=== PATIENT | female | born 1940 | race Caucasian/White ===

== ENCOUNTER 2018-04-18 10:53 | Emergency (ER) | payer MEDICARE, BC ==
[2018-04-18 10:57] VITALS: BP 186/71
--- NOTE | 2018-04-18 11:31 | ER Document Report ---
ED General - General Chief Complaint: High Blood Pressure Stated Complaint: BLOOD PRESSURE ISSUES Time Seen by Provider: 04/18/18 11:17 Notes: Patient is a 77-year-old female that presents to the emergency department for chief complaint of elevated blood pressure and sinus congestion. Patient states that her blood pressure was elevated in the office on Friday, she was advised to continue taking her current enalapril 5 mg daily, she was previously on 20 mg this was changed several months ago. She took her blood pressure at home last night, is 191/88, she was concerned about this, so she came to the emergency department. She did take her blood pressure medication this morning prior to ED arrival. She also complains of having some sinus congestion for the past week, associated cough, and postnasal drip. She started using Flonase , Ira and Mucinex which has been helping with some of the symptoms. She notes she has COPD and asthma, but has not felt short of breath, denies chest pain, confusion, headaches, nausea or vomiting or frothy urine. Past Medical History: COPD, hypertension, asthma Past Surgical History: Appendectomy, orthopedic surgery Social History: Denies current tobacco, alcohol or illicit drug use, lives at home with family Family History: Reviewed and noncontributory for presenting illness Allergies: Reviewed, see documented allergy list. REVIEW OF SYSTEMS: Unless otherwise stated in this report the patient's positive and negative responses for review of systems for constitutional, eyes, ENT, cardiovascular, respiratory, gastrointestinal, neurological, genitourinary, musculoskeletal, and integumentary systems and related systems to the presenting problem are either as stated in the HPI or were not pertinent or were negative for the symptoms and/or complaints related to the presenting medical problem. PHYSICAL EXAMINATION: Vital signs reviewed, nursing noted reviewed. GENERAL: Elderly, well-appearing, well-nourished and in no acute distress. HEAD: Atraumatic, normocephalic. EYES: Eyes appear normal, extraocular movements intact, sclera anicteric, conjunctiva are normal. ENT: nares patent, oropharynx clear without exudates. Moist mucous membranes. NECK: Normal range of motion, supple without lymphadenopathy LUNGS: Breath sounds clear to auscultation bilaterally and equal. No wheezes rales or rhonchi. HEART: Regular rate and rhythm without murmurs ABDOMEN: Soft, nontender, normoactive bowel sounds. No rebound, guarding, or rigidity. No masses appreciated. EXTREMITIES: Nontender, good range of motion, no pitting or edema. NEUROLOGICAL: No focal neurological deficits. Moves all extremities spontaneously Motor and sensory grossly intact on exam. PSYCH: Normal mood, normal affect. SKIN: Warm, Dry, normal turgor, no rashes or lesions noted on exposed skin TRAVEL OUTSIDE OF THE [place] IN LAST 30 DAYS: No - Related Data Allergies/Adverse Reactions: Mites Allergy (Uncoded 04/18/18 10:53) Past Medical History - Social History Smoking Status: Never Smoker Chew tobacco use (# tins/day): No Drug Abuse: None Family History: Reviewed & Not Pertinent Patient has suicidal ideation: No Patient has homicidal ideation: No - Past Medical History Cardiac Medical History: Reports: Hx Hypercholesterolemia, Hx Hypertension Pulmonary Medical History: Reports: Hx Asthma, Hx COPD Renal/ Medical History: Denies: Hx Peritoneal Dialysis Malignancy Medical History: Reports: Hx Lymphoma - Followed by Lee Ann Brown M.D. in [place], [place] GI Medical History: Reports: Hx Gastroesophageal Reflux Disease Psychiatric Medical History: Reports: Hx Anxiety, Hx Depression Past Surgical History: Reports: Hx Appendectomy, Hx Orthopedic Surgery, Hx Tonsillectomy - Immunizations Immunizations up to date: Yes Hx Diphtheria, Pertussis, Tetanus Vaccination: Yes Physical Exam - Vital signs Vitals: Temp Pulse Resp BP Pulse Ox 98.2 F 80 16 186/71 H 94 04/18/18 10:56 04/18/18 10:56 04/18/18 10:56 04/18/18 10:56 04/18/18 10:56 Course - Re-evaluation Re-evalutation: I discussed with the patient, that elevated blood pressure, without symptoms, does not need acute treatment, but does need changes in medications to overall decrease the patient's blood pressure, I advised to increase her enalapril to 10 mg daily, and to follow-up with a primary this upcoming week, advised to continue her current regimen for her congestive and URI symptoms including Mucinex, Ira, and Flonase, her lungs are clear on auscultation, I do not feel the patient needs any acute steroid treatment, which showed only further elevate her blood pressure, patient was agreeable to this plan of care, was given reasons to return to the emergency department sooner, and was discharged to home. - Vital Signs Vital signs: Temp Pulse Resp BP Pulse Ox 98.2 F 80 16 186/71 H 94 04/18/18 10:56 04/18/18 10:56 04/18/18 10:56 04/18/18 10:56 04/18/18 10:56 Discharge - Discharge Clinical Impression: Hypertension Qualifiers: Hypertension type: unspecified Qualified Code(s): I10 - Essential (primary) hypertension URI (upper respiratory infection) Qualifiers: URI type: unspecified URI Qualified Code(s): J06.9 - Acute upper respiratory infection, unspecified Condition: Stable Disposition: HOME, SELF-CARE Instructions: High Blood Pressure, Requiring Treatment ([facility]), Upper Respiratory Illness ([facility]) Additional Instructions: Please start taking an additional 5 mg of enalapril daily, this will be a total of 10 mg of enalapril daily. Please follow-up with your primary care physician to have your blood pressure rechecked in the office next week. If you develop any concerning symptoms such as chest pain, difficulty breathing, difficulty breathing with lying down, or swelling in her legs, or dark urine or foamy urine , please return to the emergency department to be reevaluated. Continue taking the [id number] Ira once daily, and the Flonase each nostril once daily he can increase this to twice daily, also take Mucinex twice daily to help with thinning mucus secretions. Referrals: PIERRE MCKEON MD [Primary Care Provider] - Follow up as needed
== END 2018-04-18 11:34 | disposition home or self-care (01) ==
LOC: ER 10:53
DX: I10 Essential (primary) hypertension (principal); Z79.899 Other long term (current) drug therapy; J06.9 Acute upper respiratory infection, unspecified; R09.81 Nasal congestion; R05 Cough; R09.82 Postnasal drip; J44.9 Chronic obstructive pulmonary disease, unspecified; Z85.72 Personal history of non-Hodgkin lymphomas
CPT/HCPCS: 99283

== ENCOUNTER → 2019-12-30 | Outpatient (CLI) | payer MEDICARE, BC ==
[2019-12-30 12:10] LABS: HEMATOCRIT 36.6 % (36.0-47.0); HEMOGLOBIN 12.1 g/dL (12.0-15.5); MEAN CORPUSCULAR HEMOGLOBIN 28.6 pg (27.0-33.4); MEAN CORPUSCULAR HGB CONC 33.2 g/dL (32.0-36.0); MEAN CORPUSCULAR VOLUME 86 fl (80-97); PLATELET COUNT 372 10^3/uL (150-450); RED BLOOD COUNT 4.24 10^6/uL (3.72-5.28); RED CELL DISTRIBUTION WIDTH 17.4 % (11.5-14.0); WHITE BLOOD COUNT 8.3 10^3/uL (4.0-10.5)
[2019-12-30 12:30] LABS: ALBUMIN 3.8 g/dL (3.5-5.0); ALKALINE PHOSPHATASE 60 U/L (38-126); ANION GAP 7 (5-19); ASPARTATE AMINO TRANSFERASE 23 U/L (14-36); BILIRUBIN,TOTAL 0.3 mg/dL (0.2-1.3); BLOOD UREA NITROGEN 12 mg/dL (7-20); CALCIUM 9.2 mg/dL (8.4-10.2); CARBON DIOXIDE 26 mmol/L (22-30); CHLORIDE 104 mmol/L (98-107); GLUCOSE 95 mg/dL (75-110); POTASSIUM 4.3 mmol/L (3.6-5.0); TOTAL PROTEIN 7.1 g/dL (6.3-8.2)
== END ==
LOC: OD 11:37
PROVIDERS: ATTEND Internal Medicine Hematology & Oncology
DX: C83.30 Diffuse large B-cell lymphoma, unspecified site (principal)
CPT/HCPCS: 36415; 80053; 85027

== ENCOUNTER → 2020-01-20 | Outpatient (CLI) | payer MEDICARE, BC ==
[2020-01-20 08:59] LABS: HEMATOCRIT 36.9 % (36.0-47.0); HEMOGLOBIN 12.4 g/dL (12.0-15.5); MEAN CORPUSCULAR HEMOGLOBIN 29.7 pg (27.0-33.4); MEAN CORPUSCULAR HGB CONC 33.5 g/dL (32.0-36.0); MEAN CORPUSCULAR VOLUME 89 fl (80-97); PLATELET COUNT 258 10^3/uL (150-450); RED BLOOD COUNT 4.16 10^6/uL (3.72-5.28); RED CELL DISTRIBUTION WIDTH 20.6 % (11.5-14.0); WHITE BLOOD COUNT 10.9 10^3/uL (4.0-10.5)
[2020-01-20 09:15] LABS: ALBUMIN 3.9 g/dL (3.5-5.0); ALKALINE PHOSPHATASE 48 U/L (38-126); ANION GAP 5 (5-19); ASPARTATE AMINO TRANSFERASE 19 U/L (14-36); BILIRUBIN,TOTAL 0.3 mg/dL (0.2-1.3); BLOOD UREA NITROGEN 12 mg/dL (7-20); CALCIUM 9.4 mg/dL (8.4-10.2); CARBON DIOXIDE 29 mmol/L (22-30); CHLORIDE 103 mmol/L (98-107); GLUCOSE 104 mg/dL (75-110); POTASSIUM 4.1 mmol/L (3.6-5.0); TOTAL PROTEIN 6.9 g/dL (6.3-8.2)
== END ==
LOC: OD 08:29
PROVIDERS: ATTEND Internal Medicine Hematology & Oncology
DX: C83.30 Diffuse large B-cell lymphoma, unspecified site (principal)
CPT/HCPCS: 36415; 80053; 85027

== ENCOUNTER → 2020-02-10 | Outpatient (CLI) | payer MEDICARE, BC ==
[2020-02-10 11:17] LABS: ABSOLUTE LYMPHOCYTES (AUTO) 1.2 10^3/uL (0.5-4.7); ABSOLUTE MONOCYTES (AUTO) 0.9 10^3/uL (0.1-1.4); ABSOLUTE NEUT (AUTO) 5.2 10^3/uL (1.7-8.2); BASOPHILS % (AUTO) 0.6 % (0-2); EOSINOPHILS % (AUTO) 0.3 % (0-6); HEMATOCRIT 35.4 % (36.0-47.0); LYMPHOCYTES % (AUTO) 16.4 % (13-45); MEAN CORPUSCULAR HEMOGLOBIN 30.9 pg (27.0-33.4); MEAN CORPUSCULAR HGB CONC 33.8 g/dL (32.0-36.0); MEAN CORPUSCULAR VOLUME 91 fl (80-97); MONOCYTES % (AUTO) 12.7 % (3-13); PLATELET COUNT 282 10^3/uL (150-450); RED BLOOD COUNT 3.88 10^6/uL (3.72-5.28); RED CELL DISTRIBUTION WIDTH 22.2 % (11.5-14.0); TOTAL CELLS COUNTED % (AUTO) 100 %; WHITE BLOOD COUNT 7.4 10^3/uL (4.0-10.5)
[2020-02-10 11:41] LABS: ALBUMIN 3.9 g/dL (3.5-5.0); ALKALINE PHOSPHATASE 47 U/L (38-126); ANION GAP 9 (5-19); ASPARTATE AMINO TRANSFERASE 22 U/L (14-36); BILIRUBIN,TOTAL 0.3 mg/dL (0.2-1.3); BLOOD UREA NITROGEN 12 mg/dL (7-20); CARBON DIOXIDE 25 mmol/L (22-30); CHLORIDE 105 mmol/L (98-107); GLUCOSE 84 mg/dL (75-110); POTASSIUM 4.3 mmol/L (3.6-5.0); TOTAL PROTEIN 6.7 g/dL (6.3-8.2)
[2020-02-10 12:35] LABS: ANISOCYTOSIS 3+; OVALOCYTES 1+; POIKILOCYTOSIS 1+; SCHISTOCYTES 1+
[2020-02-10 12:36] LABS: TEAR DROP CELLS SLIGHT
[2020-02-10 12:40] LABS: PLATELET COMMENT ADEQUATE
== END ==
LOC: OD 10:19
PROVIDERS: ATTEND Internal Medicine Hematology & Oncology
DX: C83.30 Diffuse large B-cell lymphoma, unspecified site (principal)
CPT/HCPCS: 36415; 80053; 85025

== ENCOUNTER → 2020-03-02 | Outpatient (CLI) | payer MEDICARE, BC ==
[2020-03-02 10:46] LABS: ABSOLUTE BASOPHILS # (AUTO) 0.1 10^3/uL (0.0-0.2); ABSOLUTE LYMPHOCYTES (AUTO) 0.9 10^3/uL (0.5-4.7); ABSOLUTE MONOCYTES (AUTO) 0.9 10^3/uL (0.1-1.4); ABSOLUTE NEUT (AUTO) 9.5 10^3/uL (1.7-8.2); BASOPHILS % (AUTO) 0.7 % (0-2); EOSINOPHILS % (AUTO) 0.3 % (0-6); HEMATOCRIT 36.4 % (36.0-47.0); HEMOGLOBIN 12.6 g/dL (12.0-15.5); LYMPHOCYTES % (AUTO) 7.7 % (13-45); MEAN CORPUSCULAR HEMOGLOBIN 32.3 pg (27.0-33.4); MEAN CORPUSCULAR HGB CONC 34.5 g/dL (32.0-36.0); MEAN CORPUSCULAR VOLUME 94 fl (80-97); MONOCYTES % (AUTO) 8.2 % (3-13); PLATELET COUNT 304 10^3/uL (150-450); RED BLOOD COUNT 3.88 10^6/uL (3.72-5.28); RED CELL DISTRIBUTION WIDTH 17.7 % (11.5-14.0); SEGMENTED NEUTROPHILS % (AUTO) 83.1 % (42-78); TOTAL CELLS COUNTED % (AUTO) 100 %; WHITE BLOOD COUNT 11.4 10^3/uL (4.0-10.5)
[2020-03-02 11:10] LABS: ALBUMIN 3.9 g/dL (3.5-5.0); ALKALINE PHOSPHATASE 43 U/L (38-126); ANION GAP 9 (5-19); ASPARTATE AMINO TRANSFERASE 20 U/L (14-36); BILIRUBIN,DIRECT 0.2 mg/dL (0.0-0.4); BILIRUBIN,TOTAL 0.4 mg/dL (0.2-1.3); BLOOD UREA NITROGEN 13 mg/dL (7-20); CARBON DIOXIDE 27 mmol/L (22-30); CHLORIDE 101 mmol/L (98-107); GLUCOSE 105 mg/dL (75-110); POTASSIUM 3.1 mmol/L (3.6-5.0); TOTAL PROTEIN 6.5 g/dL (6.3-8.2)
== END ==
LOC: OD 09:50
PROVIDERS: ATTEND Internal Medicine Hematology & Oncology
DX: C83.30 Diffuse large B-cell lymphoma, unspecified site (principal)
CPT/HCPCS: 36415; 80053; 85025

== ENCOUNTER → 2020-03-23 | Outpatient (CLI) | payer MEDICARE, BC ==
[2020-03-23 11:12] LABS: HEMATOCRIT 34.9 % (36.0-47.0); HEMOGLOBIN 12.1 g/dL (12.0-15.5); MEAN CORPUSCULAR HEMOGLOBIN 33.4 pg (27.0-33.4); MEAN CORPUSCULAR HGB CONC 34.8 g/dL (32.0-36.0); MEAN CORPUSCULAR VOLUME 96 fl (80-97); PLATELET COUNT 268 10^3/uL (150-450); RED BLOOD COUNT 3.63 10^6/uL (3.72-5.28); RED CELL DISTRIBUTION WIDTH 13.8 % (11.5-14.0); WHITE BLOOD COUNT 7.6 10^3/uL (4.0-10.5)
[2020-03-23 11:29] LABS: ALBUMIN 3.8 g/dL (3.5-5.0); ALKALINE PHOSPHATASE 49 U/L (38-126); ANION GAP 7 (5-19); ASPARTATE AMINO TRANSFERASE 22 U/L (14-36); BILIRUBIN,DIRECT 0.2 mg/dL (0.0-0.4); BILIRUBIN,TOTAL 0.4 mg/dL (0.2-1.3); BLOOD UREA NITROGEN 6 mg/dL (7-20); CALCIUM 9.2 mg/dL (8.4-10.2); CARBON DIOXIDE 30 mmol/L (22-30); CHLORIDE 102 mmol/L (98-107); GLUCOSE 92 mg/dL (75-110); POTASSIUM 3.5 mmol/L (3.6-5.0); TOTAL PROTEIN 6.1 g/dL (6.3-8.2)
== END ==
LOC: OD 10:15
PROVIDERS: ATTEND Internal Medicine Hematology & Oncology
DX: C83.30 Diffuse large B-cell lymphoma, unspecified site (principal)
CPT/HCPCS: 36415; 80053; 85027

== ENCOUNTER → 2020-03-30 | Outpatient (CLI) | payer MEDICARE, BC ==
[2020-03-30 10:07] LABS: HEMATOCRIT 37.4 % (36.0-47.0); HEMOGLOBIN 12.9 g/dL (12.0-15.5); MEAN CORPUSCULAR HEMOGLOBIN 32.7 pg (27.0-33.4); MEAN CORPUSCULAR HGB CONC 34.4 g/dL (32.0-36.0); MEAN CORPUSCULAR VOLUME 95 fl (80-97); PLATELET COUNT 332 10^3/uL (150-450); RED BLOOD COUNT 3.94 10^6/uL (3.72-5.28); RED CELL DISTRIBUTION WIDTH 13.4 % (11.5-14.0); WHITE BLOOD COUNT 4.4 10^3/uL (4.0-10.5)
[2020-03-30 10:23] LABS: ALBUMIN 3.8 g/dL (3.5-5.0); ALKALINE PHOSPHATASE 41 U/L (38-126); ANION GAP 9 (5-19); ASPARTATE AMINO TRANSFERASE 22 U/L (14-36); BILIRUBIN,DIRECT 0.2 mg/dL (0.0-0.4); BILIRUBIN,TOTAL 0.3 mg/dL (0.2-1.3); BLOOD UREA NITROGEN 6 mg/dL (7-20); CALCIUM 9.1 mg/dL (8.4-10.2); CARBON DIOXIDE 30 mmol/L (22-30); CHLORIDE 98 mmol/L (98-107); GLUCOSE 135 mg/dL (75-110); POTASSIUM 3.1 mmol/L (3.6-5.0); TOTAL PROTEIN 6.2 g/dL (6.3-8.2)
[2020-03-30 11:23] LABS: ABSOLUTE LYMPHOCYTES# (MANUAL) 0.7 10^3/uL (0.5-4.7); ABSOLUTE MONOCYTES # (MANUAL) 0.7 10^3/uL (0.1-1.4); BAND NEUTROPHILS % (MANUAL) 3 % (3-5); BASOPHILS % (MANUAL) 0 % (0-2); EOSINOPHILS % (MANUAL) 5 % (0-6); LYMPHOCYTES % (MANUAL) 10 % (13-45); MONOCYTES % (MANUAL) 17 % (3-13); SEGMENTED NEUTROPHILS % (MAN) 60 % (42-78); TOTAL CELLS COUNTED 100
[2020-03-30 11:30] LABS: POIKILOCYTOSIS SLIGHT; RBC MORPHOLOGY COMMENT NORMO-CYTIC/CHROMIC
[2020-03-30 11:31] LABS: OVALOCYTES SLIGHT; PLATELET COMMENT ADEQUATE
== END ==
LOC: OD 08:55
PROVIDERS: ATTEND Internal Medicine Hematology & Oncology
DX: C83.30 Diffuse large B-cell lymphoma, unspecified site (principal)
CPT/HCPCS: 36415; 80053; 85025

== ENCOUNTER 2020-04-07 22:44 | Emergency (ER) | payer MEDICARE, BC ==
--- NOTE | 2020-04-08 00:41 | ER Document Report ---
ED General - General Chief Complaint: General Weakness Stated Complaint: GENERAL WEAKNESS Time Seen by Provider: 04/08/20 00:22 Primary Care Provider: LEE ANN BELCHER MD [NO LOCAL MD] - Follow up as needed TRAVEL OUTSIDE OF THE [place] IN LAST 30 DAYS: No - HPI Context: This is a 79-year-old female with a history of B cell lymphoma, status post 6 chemotherapy treatments, that was referred to the emergency department by her oncologist Dr. Belcher with [facility] in [place]. Apparently the patient has been having difficulty with persistent diarrhea over the past 3 weeks and has become progressively weaker. The daughter who is in the room and relates history states that she was seen by Dr. Belcher earlier today and the daughter spoke to Dr. Belcher again by phone later today. The patient's physician recommended that the [facility] for [facility] tr eatment and then be transferred to [facility] for further treatment. The patient has not complained of any particular pain anywhere. But she states her weakness is quite significant. Patient states that any type of exertion exacerbates her symptoms and there are no alleviating symptoms. Patient denies fever, chills, cough, shortness of breath, history of COVID-19 infection, history of known exposure to COVID-19 positive persons, known exposure to persons under investigation for COVID-19. Associated symptoms: Other - See HPI Exacerbated by: Other - See HPI Relieved by: Other - See HPI - Related Data Allergies/Adverse Reactions: Mites Allergy (Uncoded 04/18/18 10:53) Past Medical History - General Information source: Patient, Relative - Social History Smoking Status: Never Smoker Chew tobacco use (# tins/day): No Frequency of alcohol use: None Drug Abuse: None Family History: Reviewed & Not Pertinent - Past Medical History Cardiac Medical History: Reports: Hx Hypercholesterolemia, Hx Hypertension Pulmonary Medical History: Reports: Hx Asthma, Hx COPD Renal/ Medical History: Denies: Hx Peritoneal Dialysis Malignancy Medical History: Reports: Hx Lymphoma - Followed by Lee Ann Brown M.D. in [place], [place] GI Medical History: Reports: Hx Gastroesophageal Reflux Disease Psychiatric Medical History: Reports: Hx Anxiety, Hx Depression Past Surgical History: Reports: Hx Appendectomy, Hx Orthopedic Surgery, Hx Tonsillectomy - Immunizations Immunizations up to date: Yes Hx Diphtheria, Pertussis, Tetanus Vaccination: Yes Review of Systems - Review of Systems Constitutional: Weakness EENT: No symptoms reported Cardiovascular: No symptoms reported Respiratory: No symptoms reported Gastrointestinal: Diarrhea Genitourinary: No symptoms reported Female Genitourinary: No symptoms reported Musculoskeletal: No symptoms reported Skin: No symptoms reported Hematologic/Lymphatic: No symptoms reported Neurological/Psychological: No symptoms reported -: Yes All other systems reviewed and negative Physical Exam - Vital signs Vitals: Temp Resp BP Pulse Ox 97.7 F 15 121/64 98 04/07/20 23:12 04/07/20 23:12 04/07/20 23:12 04/07/20 23:12 - Notes Notes: CONSTITUTIONAL [Vital signs reviewed, Patient appears comfortable, Alert and oriented X 3, Normal stature.] HEAD [Atraumatic, Normocephalic.] EYES [Eyes are normal to inspection, No discharge from eyes, Extraocular muscles intact, Sclera are normal, Conjunctiva are normal.] NECK [Normal ROM, No jugular venous distention, No meningeal signs, no carotid b ruit.] RESPIRATORY CHEST [Chest is nontender, Breath sounds normal, No respiratory distress.] CARDIOVASCULAR [RRR, No murmurs, Normal S1 S2, No rub, No gallop.] ABDOMEN [Abdomen is nontender, No pulsatile masses, No other masses, Bowel sounds normal, No distension, No peritoneal signs, No hernias.] BACK [There is no CVA Tenderness, There is no tenderness to palpation, Normal inspection.] UPPER EXTREMITY [Inspection normal, No cyanosis, No clubbing, No edema, 2+ radial pulses.] LOWER EXTREMITY [Inspection normal, No cyanosis, No clubbing, No edema, No calf tenderness, 2+ femoral pulses.] NEURO [No focal motor deficits, No focal sensory deficits, Speech normal.] SKIN [Skin is warm, Skin is dry, Skin is normal color.] PSYCHIATRIC [Normal affect. ] Course - Re-evaluation Re-evalutation: 04/08/20 04:05 Results of the ED MSE, acceptance for transfer discussed with patient. All questions were answered. Patient is currently sitting up in bed, in no acute distress, taking her p.o. potassium. Stool sample has been obtained. 04/08/20 04:32 The reason for the patient's transfer to [facility] is at the di rection of the patient's oncologist, stating that he patient is a very fragile cancer patient on chemotherapy with multiple additional medical issues and all of her oncology care and patient's course of care has been handled through the oncologist in [facility]. The patient's oncologist feels that the patient would be better served to be at the facility where she receives her oncology care. - Vital Signs Vital signs: Temp Pulse Resp BP Pulse Ox 97.7 F 16 111/51 L 99 04/07/20 23:12 04/08/20 03:01 04/08/20 03:00 04/08/20 03:01 - Laboratory Result Diagrams: 04/07/20 23:38 04/07/20 23:38 Laboratory results interpreted by me: 04/07/20 04/07/20 04/08/20 23:38 23:38 02:15 WBC 3.2 L RBC 3.11 L Hgb 10.4 L Hct 29.6 L Monocytes % (Manual) 16 H Sodium 132.0 L Potassium 3.1 L Chloride 97 L Creatinine 0.40 L Calcium 8.1 L Total Protein 4.5 L Albumin 2.6 L Urine Blood SMALL H Urine Nitrite POSITIVE H Ur Leukocyte Esterase SMALL H - EKG Interpretation by Me Additional EKG results interpreted by me: 04/08/20 04:00 EKG obtained on 04/08/2020 at 0 to 13 hours was interpreted by this MD. Findings: Normal sinus rhythm, rate 87, normal axis, OR interval appears to be within normal limits, P waves proceed QRS complexes, QRS complex appears narrow, QTC is 491, there are no obvious patterns of ST segment elevation, depression or reciprocal changes to suggest acute myocardial ischemia or infarction. There is no prior EKG immediately available for comparison. Impression: Normal sinus rhythm with nonspecific ST segments. Discharge - Discharge Clinical Impression: Generalized weakness, Chronic diarrhea, Dehydration, Hypokalemia B-cell lymphoma Qualifiers: B-cell lymphoma type: unspecified B-cell Lymphoma site: unspecified region Qualified Code(s): C85.10 - Unspecified B-cell lymphoma, unspecified site UTI (urinary tract infection) Qualifiers: Urinary tract infection type: site unspecified Hematuria presence: with hematuria Qualified Code(s): N39.0 - Urinary tract infection, site not specified Condition: Stable Disposition: [facility] Referrals: LEE ANN BELCHER MD [NO LOCAL MD] - Follow up as needed
[2020-04-08] MEDS ORDERED: NORMAL SALINE 1000 ML 1,000 ML IV ONE ×2 (00:48→04:00)
[2020-04-08 01:27] LABS: ALBUMIN 2.6 g/dL (3.5-5.0); ALKALINE PHOSPHATASE 40 U/L (38-126); ANION GAP 5 (5-19); ASPARTATE AMINO TRANSFERASE 17 U/L (14-36); BILIRUBIN,DIRECT 0.2 mg/dL (0.0-0.4); BILIRUBIN,TOTAL 0.3 mg/dL (0.2-1.3); BLOOD UREA NITROGEN 10 mg/dL (7-20); CALCIUM 8.1 mg/dL (8.4-10.2); CARBON DIOXIDE 30 mmol/L (22-30); CHLORIDE 97 mmol/L (98-107); GLUCOSE 102 mg/dL (75-110); POTASSIUM 3.1 mmol/L (3.6-5.0); TOTAL PROTEIN 4.5 g/dL (6.3-8.2)
[2020-04-08 01:47] LABS: HEMATOCRIT 29.6 % (36.0-47.0); HEMOGLOBIN 10.4 g/dL (12.0-15.5); MEAN CORPUSCULAR HEMOGLOBIN 33.4 pg (27.0-33.4); MEAN CORPUSCULAR HGB CONC 35.1 g/dL (32.0-36.0); MEAN CORPUSCULAR VOLUME 95 fl (80-97); PLATELET COUNT 151 10^3/uL (150-450); RED BLOOD COUNT 3.11 10^6/uL (3.72-5.28); RED CELL DISTRIBUTION WIDTH 12.8 % (11.5-14.0); WHITE BLOOD COUNT 3.2 10^3/uL (4.0-10.5)
[2020-04-08 01:54] LABS: ABSOLUTE LYMPHOCYTES# (MANUAL) 0.7 10^3/uL (0.5-4.7); ABSOLUTE MONOCYTES # (MANUAL) 0.5 10^3/uL (0.1-1.4); BAND NEUTROPHILS % (MANUAL) 5 % (3-5); BASOPHILS % (MANUAL) 0 % (0-2); EOSINOPHILS % (MANUAL) 1 % (0-6); LYMPHOCYTES % (MANUAL) 23 % (13-45); MONOCYTES % (MANUAL) 16 % (3-13); SEGMENTED NEUTROPHILS % (MAN) 55 % (42-78); TOTAL CELLS COUNTED 100
[2020-04-08 01:55] LABS: PLATELET CLUMPS PRESENT; PLATELET COMMENT ADEQUATE; RBC MORPHOLOGY COMMENT NORMO-CYTIC/CHROMIC; TOXIC GRANULATION 1+
[2020-04-08 02:52] LABS: APPEARANCE,URINE CLEAR; BILIRUBIN,URINE NEGATIVE (NEGATIVE); COLOR,URINE YELLOW; GLUCOSE, URINE NEGATIVE (NEGATIVE); KETONES,URINE NEGATIVE (NEGATIVE); LEUKOCYTE ESTERASE,URINE SMALL (NEGATIVE); NITRITE,URINE POSITIVE (NEGATIVE); PROTEIN,URINE NEGATIVE (NEGATIVE); URINE SPECIFIC GRAVITY 1.006; UROBILINOGEN,URINE NEGATIVE mg/dL (<2.0)
[2020-04-08] MEDS ORDERED: POTASSIUM CHLORIDE 10 MEQ TABLET.ER PO ONE (03:10)
[2020-04-08] MEDS ORDERED: CEFTRIAXONE 1 GM/D5W RTU 50 ML IV ONE (03:11)
[2020-04-08] MEDS ORDERED: CEFTRIAXONE 1 GM/D5W RTU 1 GM/50 ML RTUPB IV ONE (03:39)
[2020-04-08 07:23] LABS: CRYPTOSPORIDIUM PARVUM AG NEGATIVE (NEGATIVE); GIARDIA LAMBLIA AG NEGATIVE (NEGATIVE)
[2020-04-08 09:00] LABS: C DIFFICILE GDH NEGATIVE (NEGATIVE)
--- NOTE | 2020-04-08 09:58 | EKG REPORT ---
SEVERITY:- BORDERLINE ECG - SINUS RHYTHM BORDERLINE PROLONGED QT INTERVAL : Confirmed by: Mahendra Quezada 08-Apr-2020 09:57:45
[2020-04-08] MEDS ORDERED: ONDANSETRON 4 MG TAB.RAPDIS PO PRN (15:20)
[2020-04-08] MEDS ORDERED: ALPRAZOLAM 0.5 MG TABLET PO SCH (15:24)
[2020-04-08] MEDS ORDERED: DIPHENOXYLATE HCL/ATROP SULF 2.5-0.025 MG TABLET PO PRN (15:24)
[2020-04-08] MEDS ORDERED: NITROFURANTOIN MONOHYD/M-CRYST 100 MG CAPSULE PO SCH (18:15)
[2020-04-08 18:23] VITALS: BP 146/79
[2020-04-08] MEDS ORDERED: POTASSIUM CHLORIDE 10 MEQ TABLET.ER PO SCH (22:00)
[2020-04-08] MEDS ORDERED: MEGESTROL ACETATE 20 MG TABLET PO SCH (22:00)
[2020-04-08] MEDS ORDERED: ESCITALOPRAM OXALATE 10 MG TABLET PO SCH (22:00)
[2020-04-08] MEDS ORDERED: ENALAPRIL MALEATE 10 MG TABLET PO SCH (22:00)
[2020-04-09] MEDS ORDERED: PANTOPRAZOLE SODIUM 40 MG TABLET.DR PO SCH (06:00)
[2020-04-09] MEDS ORDERED: FLUTICASONE/VILANTEROL 100-25 MCG/DOSE IH SCH (10:00)
== END 2020-04-08 20:12 | disposition short-term general hospital (02) ==
LOC: ER 22:44
DX: R53.1 Weakness (principal); E86.0 Dehydration; E87.6 Hypokalemia; A08.8 Other specified intestinal infections; N39.0 Urinary tract infection, site not specified; C85.10 Unspecified B-cell lymphoma, unspecified site; E78.00 Pure hypercholesterolemia, unspecified; I10 Essential (primary) hypertension; J44.9 Chronic obstructive pulmonary disease, unspecified; Z79.899 Other long term (current) drug therapy
CPT/HCPCS: 93005; 36591; 99285; 96361; 96365; 87329; 36415; 87045; 87086; 87205; 87209; 86403; 83735; 87177; 85025; 87088; 80053; 87206 ×2; 81001; 87186; 87324; 87449; 93010; A9270 ×3; J7030; J0696; J8499